=== PATIENT | male | born 1960 | race Caucasian/White ===

== ENCOUNTER → 2016-12-17 | Outpatient (CLI) | payer BC ==
[~2016-12-17] MED LIST: ASP81CT; CATHETER FLUSH 10 ML SYR IV PRN; CTRZ10T; IOHEXOL 350 MG/ML 100 ML (OMNIPAQUE 350) VIAL IV ONE; MONT10TA21 PO; NS 100 ML (IVPB) BAG IV ONE; diphenhydrAMINE 50 MG/ML INJ (BENADRYL) IV ONE; diphenhydrAMINE 50 MG/ML INJ (BENADRYL) ONE; methylPREDNISolone 125 MG (Solu-MEDROL) VIAL IV ONE; methylPREDNISolone 125 MG (Solu-MEDROL) VIAL ONE
[2016-12-17 09:43] LABS: BLOOD UREA NITROGEN 16 MG/DL (7-18); BUN/CREATININE RATIO 16; CREATININE SERUM 0.98 MG/DL (0.60-1.30); GFR ESTIMATED > 60
--- NOTE | 2016-12-17 12:05 | Diagnostic Imaging Report ---
EXAMINATION: CT scan of the head and neck performed without and with intravenous contrast. INDICATION: Visual problems. FINDINGS: CT HEAD: There is no intracranial hemorrhage, edema, or mass effect. The brain parenchyma appears unremarkable. No hydrocephalus. No extra-axial fluid collection is seen. Post contrast images demonstrate no enhancing mass. The calvarium, orbits, and paranasal sinuses appear unremarkable. CT NECK: There is mild hypertrophy of the oropharyngeal tonsils with calcifications seen in the peritonsillar region on both sides but more on the left, presumably related to prior infections. There is a symmetric appearance of the vocal cords. The thyroid gland, submandibular glands, and parotid glands appear symmetric. There is vascular enhancement in the carotid arteries and internal jugular veins with no gross abnormality. No soft tissue mass or significantly enlarged lymph node in the neck is seen. The osseous structures appear grossly unremarkable. IMPRESSION: CT HEAD: Unremarkable exam. CT NECK: Hypertrophy of the oropharyngeal tonsillar tissue and punctate calcifications seen, probably related to prior infections. Correlate clinically. Dictated by: Dictated on workstation # [id number]
== END ==
LOC: RAD 09:06
PROVIDERS: ATTEND Family Medicine
DX: H49.01 Third [oculomotor] nerve palsy, right eye (principal)
CPT/HCPCS: 36415; 70470; 70492; 82565; 84520

== ENCOUNTER → 2017-01-01 | Outpatient (CLI) | payer BC ==
[~2017-01-01] MED LIST changes: -CATHETER FLUSH 10 ML SYR IV PRN; +GADOBUTROL 10 MMOL/10 ML (GADAVIST) VIAL IV ONE; -IOHEXOL 350 MG/ML 100 ML (OMNIPAQUE 350) VIAL IV ONE; -NS 100 ML (IVPB) BAG IV ONE; -diphenhydrAMINE 50 MG/ML INJ (BENADRYL) IV ONE; -diphenhydrAMINE 50 MG/ML INJ (BENADRYL) ONE; -methylPREDNISolone 125 MG (Solu-MEDROL) VIAL IV ONE; -methylPREDNISolone 125 MG (Solu-MEDROL) VIAL ONE
--- NOTE | 2017-01-01 10:56 | Diagnostic Imaging Report ---
MRI of the brain and sella performed without and with intravenous contrast. INDICATION: Abnormal eye exam. Rule out tumor of the pituitary gland. 9 mL of Gadovist is administered intravenously. FINDINGS: There is no diffusion restriction to suggest an acute infarct or other diffusion abnormality. The brain parenchyma demonstrates normal barnett and white matter signal. There is no hydrocephalus. No extra-axial fluid collection is seen. No demyelinating lesions, brain edema, or enhancing mass. The brainstem and cerebellum appear unremarkable. Thin section dedicated images through the sella demonstrate asymmetry in the pituitary gland with convexity of the roof of the pituitary gland on the right side with suggestion of an underlying nodule measuring 7 x 7 x 8 mm. This is abutting the right cavernous sinus with no definite invasion or encasement of the cavernous sinus. It has a T1 hyperintense intrinsic signal as seen on coronal image 8, series 9 which may indicate small focal hemorrhage. This corresponds to a dark signal on T2 as on coronal image 8, series 10. The lesion is inseparable from the rest of the pituitary gland and is probably arising from it suggestive of a microadenoma. The flow-void signal in the adjacent right internal carotid artery within the cavernous sinus appears normal. The internal auditory canals and inner ear structures appear symmetric. IMPRESSION: There is a 7-mm nodule seen in the right side of the sella which appears to be arising from the pituitary gland suggestive of a microadenoma. Intrinsic T1 hyperintensity may relate to tiny internal hemorrhage. The nodule is abutting the right cavernous sinus without definitive invasion or significant encasement of the right internal carotid artery. Followup exam is recommended. Findings were discussed with Dr. Dominguez at time of dictation. Dictated by: Dictated on workstation # [id number]
== END ==
LOC: RAD 07:47
PROVIDERS: ATTEND Family Medicine
DX: H49.01 Third [oculomotor] nerve palsy, right eye (principal); E23.7 Disorder of pituitary gland, unspecified
CPT/HCPCS: 70553

== ENCOUNTER → 2017-03-18 | Outpatient (CLI) | payer BC ==
[~2017-03-18] MED LIST changes: -GADOBUTROL 10 MMOL/10 ML (GADAVIST) VIAL IV ONE
--- NOTE | 2017-03-18 17:33 | Diagnostic Imaging Report ---
INDICATION: Left knee injury two months ago with continued medial pain. EXAMINATION: AP, oblique and lateral views of the left knee were obtained. COMPARISON: Study of 05/30/2012. FINDINGS: There is mild narrowing of the medial compartment of the knee joint with focal lucency along the medial margin of the medial tibial plateau. There may be mild associated fragmentation at this site indicating probable subacute fracture. No significant joint effusion is identified. There is no other evidence of abnormal lytic or sclerotic focus. IMPRESSION: Focal defect involving the medial aspect of the medial tibial plateau which likely represents subacute impaction fracture and clinical correlation is recommended. Dictated by: Dictated on workstation # [id number]
== END ==
LOC: RAD 16:31
PROVIDERS: ATTEND Family Medicine
DX: R93.7 Abnormal findings on diagnostic imaging of other parts of musculoskeletal system (principal)
CPT/HCPCS: 73562

== ENCOUNTER → 2017-04-22 | Outpatient (CLI) | payer BC ==
--- NOTE | 2017-04-22 17:57 | Diagnostic Imaging Report ---
PROCEDURE: MRI left joint lower extremity without contrast. TECHNIQUE: Multiplanar, multisequence non contrast-enhanced MRI of the left lower extremity was accomplished. INDICATION: Left knee pain. FINDINGS: The anterior cruciate and posterior cruciate ligaments are intact. There is some increased signal intensity within the posterior cruciate ligament likely reflecting some myxoid degeneration. The medial collateral ligament is intact. The biceps femoris, fibular collateral, and iliotibial band are intact. There is a tear of the posterior horn of the medial meniscus. The anterior horn of the medial meniscus is intact. There is abnormal signal intensity centrally within both the posterior and anterior horns of the lateral meniscus. Tear extending to the superior articular surface from the anterior horn cannot be excluded. The quadriceps tendon and patellar tendon are intact. There is a small knee joint effusion. There is some mild chondromalacia patellae with some minimal underlying marrow edema in the medial patellar facet. There is some thinning of the articular cartilage in the medial knee joint compartment; however, no full-thickness osteochondral defects. There is no underlying marrow edema. There are no other focal soft tissue abnormalities. IMPRESSION: There is a tear of the posterior horn of the medial meniscus. There are also at least intrasubstance tears of the anterior and posterior horns of the lateral meniscus. A tear extending to the superior articular surface of the anterior horn of the lateral meniscus is suspected. Recommend clinical correlation. Small knee joint effusion. Chondromalacia patellae with some minimal underlying marrow edema in the medial patellar facet. Thinning of the articular cartilage in the medial knee joint compartment without evidence of underlying marrow edema. Dictated by: Dictated on workstation # [id number]
== END ==
LOC: RAD 16:10
PROVIDERS: ATTEND Orthopaedic Surgery
DX: S83.282A Other tear of lateral meniscus, current injury, left knee, initial encounter (principal); S83.242A Other tear of medial meniscus, current injury, left knee, initial encounter; M25.462 Effusion, left knee; M22.42 Chondromalacia patellae, left knee; X58.XXXA Exposure to other specified factors, initial encounter; Y99.8 Other external cause status
CPT/HCPCS: 73721

== ENCOUNTER → 2018-07-01 | Outpatient (CLI) | payer BC ==
[~2018-07-01] MED LIST changes: +GADOBUTROL 10 MMOL/10 ML (GADAVIST) VIAL IV ONE
[2018-07-01 12:52] LABS: BUN/CREATININE RATIO 14; CREATININE SERUM 0.98 MG/DL (0.60-1.30); GFR ESTIMATED > 60
--- NOTE | 2018-07-01 14:23 | Diagnostic Imaging Report ---
PROCEDURE: MR brain and sella with and without contrast. TECHNIQUE: Multiplanar, multisequence MR imaging of the brain was performed with and without contrast. Dedicated dynamic imaging of the sella was performed. INDICATION: Pituitary tumor, recheck. COMPARISON: 01/01/2017. FINDINGS: No diffusion restriction is identified. The normal expected flow-voids within the carotid siphons are seen. Ventricular size is normal. No hydrocephalus is identified. Occasional periventricular and subcortical white matter signal foci are present consistent with chronic microvascular ischemia. No acute intra-axial or extra-axial hemorrhage is detected. The overall configuration of the sella is very similar to prior examination from December 2016. The right aspect of the pituitary gland again demonstrates some mild convex upward borders. Overall signal appears to be very similar to the adjacent pituitary gland, however. No significant hypointensity on delayed imaging within the pituitary gland is seen, which is typical for microadenomas. The infundibulum remains midline. Optic chiasm is unremarkable. Corpus callosum is unremarkable. IMPRESSION: Overall stable MRI of the brain with and without contrast when compared with study dating back to 01/01/2017. The configuration of the pituitary gland and sella is unchanged from prior study. No new abnormality is detected. Dictated by: Dictated on workstation # [id number]
== END ==
LOC: RAD 12:11
PROVIDERS: ATTEND Nurse Practitioner Family
DX: D35.2 Benign neoplasm of pituitary gland (principal)
CPT/HCPCS: 36415; 70553; 82565; 84520

== ENCOUNTER 2019-05-30 10:15 | Outpatient (CLI) | payer BC ==
[~2019-05-30] VITALS: Ht 177 cm; Wt 97.7 kg
[~2019-05-30 10:15] MED LIST changes: -GADOBUTROL 10 MMOL/10 ML (GADAVIST) VIAL IV ONE
[2019-05-30] MEDS ORDERED: ALFU10TA PO (12:30)
[2019-05-30] MEDS ORDERED: CETI10TA20 PO (12:30)
[2019-05-30] MEDS ORDERED: MULT1CAP27 PO (12:30)
[2019-05-30] MEDS ORDERED: ASPI-586 PO (12:30)
[2019-05-30] MEDS ORDERED: FAMO-119 PO (12:30)
[2019-05-30] MEDS ORDERED: ACYC400T PO (12:30)
[2019-05-30] MEDS ORDERED: OLME40TA18 PO (12:31)
[2019-05-30] MEDS ORDERED: AMLO2.5T4 PO (12:31)
== END 2019-05-30 12:33 | disposition home or self-care (01) ==
LOC: PREOP 10:15
PROVIDERS: ATTEND Surgery
DX: Z01.818 Encounter for other preprocedural examination (principal)

== ENCOUNTER → 2019-06-02 | Outpatient (CLI) | payer BC ==
--- NOTE | 2019-05-29 16:46 | HISTORY AND PHYSICAL ---
DATE OF SERVICE: PROCEDURE DATE: 05/31/2019. ATTENDING PHYSICIAN: Tierra Dominguez DO HISTORY OF PRESENT ILLNESS: The patient is a 58-year-old male who is known to us. He who is seen back in 2009 for a change in bowel habits as well as diarrhea and underwent a colonoscopy at that time. He was found to have mild external and internal hemorrhoids with the remainder of the colon and rectum normal. On today's visit, the patient reports that he is in need of a screening colonoscopy. Again, his last one was 10 years ago. He denies any family history of colon cancer as well as no diarrhea, constipation or any abdominal pain. He does report that he does occasionally get some episodes of bright red blood in the stool, but reports that this is usually a hemorrhoid related. PAST MEDICAL HISTORY: Hypertension, hypercholesterolemia, hypogonadism. PAST SURGICAL HISTORY: Left arm biceps tendon repair 05/2017. ALLERGIES: IV CONTRAST DYE. CURRENT MEDICATIONS: Multivitamin, Zyrtec, aspirin 81 mg, Pepcid 20 mg, Uroxatral 10 mg, acyclovir 400 mg, amlodipine 2.5 mg, alfuzosin 10 mg, atorvastatin 10 mg, olmesartan 40 mg. SOCIAL HISTORY: Negative for smoke or alcohol. FAMILY HISTORY: Father leukemia, hypertension. Mother, hypertension. PHYSICAL EXAMINATION: VITAL SIGNS: Blood pressure is 112/60. Current weight is 227.2, height 5 feet 10 inches. REVIEW OF SYSTEMS: Well-nourished male in no acute distress. He is not experiencing any shortness of breath or difficulty breathing. No chest pain, palpitations or diaphoresis. No nausea, vomiting or abdominal pain. No diarrhea or constipation. He does report occasional episodes of bright red blood in his stool, but is most likely a hemorrhoid related. No dark tarry stools. No fever or chills. No recent inadvertent weight loss. All other review of systems negative. PHYSICAL EXAMINATION: CHEST: Clear. LUNGS: Good breath sounds bilaterally. HEART: Regular, no murmurs. EXTREMITIES: No lower extremity edema. Negative Homans sign. HEENT: No scleral icterus. No cervical adenopathy. ABDOMEN: Soft, nontender, nondistended. No palpable masses. No organomegaly. SKIN: Warm, dry and pink. NEUROLOGIC: Awake, alert, oriented x3. ASSESSMENT AND PLAN: This is a 58-year-old male who is in need of a screening colonoscopy. The risks and benefits of the procedure as well as the procedure with instructions were explained to the patient. The patient verbalized understanding of instructions and agrees to this plan. At this time, we will proceed with scheduling the patient for a screening colonoscopy. Job ID: [id number] DocumentID: [id number] Dictated Date: 05/29/2019 16:29:10 Corrosion Prevention Metal Sprayer Date: 05/29/2019 16:45:36 Dictated By: JESSICA LOUIS APRN
[~2019-06-02] MED LIST changes: +ACYC400T PO; +ALFU10TA PO; +AMLO2.5T4 PO; +ASPI-586 PO; +CETI10TA20 PO; +FAMO-119 PO; +GADOBUTROL 10 MMOL/10 ML (GADAVIST) VIAL IV ONE; +MULT1CAP27 PO; +OLME40TA18 PO
--- NOTE | 2019-06-02 12:51 | Diagnostic Imaging Report ---
PROCEDURE: MR brain and sella with and without contrast. TECHNIQUE: Multiplanar, multisequence MR imaging of the brain was performed with and without contrast. Dedicated dynamic imaging of the sella was performed. INDICATION: Benign pituitary tumor, recheck. COMPARISON: 07/01/2018. FINDINGS: The diffusion-weighted images remain unremarkable and without abnormal restriction. Ventricular size and sulcal pattern are normal. The normal expected flow-voids within the carotid siphons are seen. Previously noted periventricular and subcortical white matter signal abnormalities are similar to prior exam and again likely on the basis of chronic microvascular ischemia. No acute intra-axial or extra-axial hemorrhage is detected. Imaging through the sella turcica again demonstrates the infundibulum to be midline. The configuration of the pituitary gland and sella is stable when compared with prior exam. The right aspect of the sella with convex upper borders of the pituitary gland are similar. No hypointense pituitary lesions are seen. The optic chiasm is unremarkable. The remainder of the brain parenchyma is unremarkable. No enhancing lesions are detected. Corpus callosum is unremarkable. IMPRESSION: Stable MRI of the brain and pituitary gland when compared with exam from 07/01/2018. Dictated by: Dictated on workstation # [id number]
== END ==
LOC: RAD 09:08
PROVIDERS: ATTEND Family Medicine
DX: D49.7 Neoplasm of unspecified behavior of endocrine glands and other parts of nervous system (principal)
CPT/HCPCS: 70553

== ENCOUNTER → 2020-01-22 | Outpatient (CLI) | payer BC ==
[~2020-01-22] MED LIST changes: -CETI10TA20 PO; +CETI10TA21 PO; -GADOBUTROL 10 MMOL/10 ML (GADAVIST) VIAL IV ONE
== END ==
LOC: LABNPT 07:20
PROVIDERS: ATTEND Surgery
DX: Z11.59 Encounter for screening for other viral diseases (principal)
CPT/HCPCS: 87635

== ENCOUNTER 2020-02-01 10:14 | Outpatient (CLI) | payer BC ==
[~2020-02-01] VITALS: Ht 180.3 cm; Wt 97.7 kg
[2020-02-01] MEDS ORDERED: NS IV 1000 ML 1,000 ML ONE (10:41)
[2020-02-01 10:45] VITALS: BP 102/48
[2020-02-01] MEDS ORDERED: NS IV 1000 ML 1,000 ML IV ONE (11:00)
[2020-02-01 11:52] VITALS: BP 102/48
== END 2020-02-01 11:52 | disposition home or self-care (01) ==
LOC: SDC 10:14
PROVIDERS: ATTEND Family Medicine
DX: E86.0 Dehydration (principal); C19 Malignant neoplasm of rectosigmoid junction
CPT/HCPCS: 96360

== ENCOUNTER → 2020-02-20 | Outpatient (CLI) | payer BC ==
[~2020-02-20] MED LIST changes: +HYDR-83 PO
== END ==
LOC: LABNPT 08:34
PROVIDERS: ATTEND Surgery
DX: C20 Malignant neoplasm of rectum (principal); Z20.828 Contact with and (suspected) exposure to other viral communicable diseases
CPT/HCPCS: 87635

== ENCOUNTER 2020-02-21 05:40 | Outpatient (RCR) | payer BC ==
[~2020-02-21] VITALS: Ht 180.3 cm; Wt 100.5 kg
[~2020-02-21 05:40] MED LIST changes: -HYDR-83 PO
[2020-02-22] MEDS ORDERED: HYDR-83 PO (08:17)
== END 2020-02-21 10:03 | disposition home or self-care (01) ==
LOC: PREOP 05:40
PROVIDERS: ATTEND Surgery
DX: Z01.818 Encounter for other preprocedural examination (principal); C19 Malignant neoplasm of rectosigmoid junction

== ENCOUNTER 2020-02-22 07:22 | Day surgery (SDC) | payer BC ==
--- NOTE | 2020-02-20 15:28 | HISTORY AND PHYSICAL ---
DATE OF SERVICE: ATTENDING PRIMARY CARE PHYSICIAN: Dr. Dominguez. HISTORY OF PRESENT ILLNESS: The patient is a 58-year-old male known to us. He states he was doing well; however, did notice rectal bleeding in 12/2019. He was eventually seen at [facility] and was found to have a lesion at the rectosigmoid junction, which was biopsied and found to be an adenocarcinoma. He was seen by Colorectal Surgery at [facility] and underwent a low anterior resection as well as a loop ileostomy on 01/25/2020. The final pathology came back as a T3 tumor. However, there were some cells identified in the vasculature making this a T3b tumor. Nineteen lymph nodes were resected, which were all negative. 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 The recommendation was to proceed with the immediate short course of chemotherapy with leucovorin, 5-fluorouracil as well as oxaliplatin. He also underwent a Cece blood test to see if there are any cancer cells detected in the blood stream, which if positive does show a 75% risk of developing recurrence within 5 years. PAST MEDICAL HISTORY: Hypertension, hypercholesterolemia, idiopathic anaphylaxis with unknown inciting event, gastroesophageal reflux disease. PAST SURGICAL HISTORY: Low anterior colorectal resection and loop ileostomy 01/25/2020. ALLERGIES: UNSPECIFIED FOOD ALLERGIES, IODINE, IV CONTRAST DYE. MEDICATIONS: Pepcid 20 mg daily, aspirin 81 mg daily, atorvastatin 10 mg daily, Benicar 40 mg daily, Zorvolex 35 mg p.r.n. SOCIAL HISTORY: Negative smoke, negative alcohol. FAMILY HISTORY: Paternal grandfather, colon cancer. Paternal grandmother, some form of bone cancer. VITAL SIGNS: Blood pressure 112/60, current weight 221.5 pounds at 5 feet 11 inches. REVIEW OF SYSTEMS: Well-nourished male in no acute distress. He is not experiencing any shortness of breath or difficulty breathing. No chest pain, palpitations, diaphoresis. No nausea, vomiting with a functional ileostomy. No fever, chills, no recent inadvertent weight loss. All other review of systems negative. PHYSICAL EXAMINATION: CHEST: Clear. Good breath sounds bilaterally. HEART: Regular, no murmurs. EXTREMITIES: No lower extremity edema, negative Homans sign. HEENT: No scleral icterus. NECK: No cervical lymphadenopathy. ABDOMEN: Soft with a functional loop ileostomy. Previous incisions healed well. No abdominal pain. SKIN: Warm, dry. ASSESSMENT AND PLAN: A 58-year-old male with distal sigmoid colon cancer, status post low anterior colorectal resection and loop ileostomy placement. He has got a T3b tumor and stage II overall colon cancer and the recommendation was to proceed with immediate short course of leucovorin, 5-fluorouracil and oxaliplatin and we will proceed with placement of a Groshong implantable catheter under fluoroscopy. Job ID: [id number] DocumentID: [id number] Dictated Date: 02/19/2020 16:30:36 Manager Photo Date: 02/19/2020 16:47:56 Dictated By: ALYSE CROCKER MD
[2020-02-22] VITALS (9 sets, daily range): BP systolic 110–128; BP diastolic 59–93
[~2020-02-22] VITALS: Ht 180.3 cm; Wt 100.5 kg
[2020-02-22] MEDS ORDERED: LACTATED RINGERS 1,000 ML IV PRN (07:31)
[2020-02-22] MEDS ORDERED: ceFAZolin 2 GM IV Premixed 50 ML IV ONE (07:45)
[2020-02-22] MEDS ORDERED: HEParin (CENTRAL IV FLUSH) 500 UNIT/5 ML SYR ONE (08:00)
[2020-02-22] MEDS ORDERED: 0.9% SODIUM CHLORIDE PF INJ 20 ML VIAL ONE (08:00)
[2020-02-22] MEDS ORDERED: BUP/EPI 0.5% 1:200,000 (SENSORCAINE) 30 ML VIAL ONE (08:00)
[2020-02-22] MEDS ORDERED: ACETAMINOPHEN 325 MG TABLET PO PRN (08:15)
[2020-02-22] MEDS ORDERED: morphine INJ 10 MG/ML 1ML (SYR OR VIAL) IVP PRN (08:15)
[2020-02-22] MEDS ORDERED: ONDANSETRON 4 MG/2 ML (SDV) Z0FRAN IVP PRN (08:15)
[2020-02-22] MEDS ORDERED: HYDROcodone/APAP 5 MG/325 MG (LORTAB) TAB PO ONE (08:15)
--- NOTE | 2020-02-22 08:15 | Progress Note-Pre Operative ---
Pre-Operative Progress Note H&P Reviewed The H&P was reviewed, patient examined and no changes noted. Date Seen by Provider: Feb 22, 2020 Time Seen by Provider: 08:10 Date H&P Reviewed: Feb 22, 2020 Time H&P Reviewed: 08:05 Pre-Operative Diagnosis: Rectal Cancer JESSICA LOUIS APRN Feb 22, 2020 08:15
[2020-02-22] MEDS ORDERED: HYDR-83 PO ×2 (08:17)
--- NOTE | 2020-02-22 08:18 | Discharge Inst-Surgical ---
D/C Lap Instructions-KIDO Reconcile Patient Problems Problems Reviewed?: Yes New, Converted, or Re-Newed RX: RX on Chart Follow Up Appt as needed Activity as tolerated No driving for 24 hours No driving while on pain medications Regular Diet Symptoms to Report: Fever over 101 degree F, Nausea/Vomiting Infection Signs and Symptoms to report: Increased redness, Foul odor of wound, Increased drainage Bathing instructions: May shower Operative Area Clean/Dry; Keep incision clean/dry If any problems/questions: Contact your physician or go to Emergency Room JESSICA LOUIS APRN Feb 22, 2020 08:18
[2020-02-22] MEDS ORDERED: MIDAZOLAM 2 MG/2 ML (VERSED) VIAL ONE (08:28)
--- NOTE | 2020-02-22 08:55 | Progress Note-Post Operative ---
Post-Operative Progess Note Surgeon (s)/Sr. Media Manager (s) Surgeon Dr. Akin Ramos M.D. Sr. Media Manager: None Pre-Operative Diagnosis Rectal Cancer Post-Operative Diagnosis Rectal Cancer Procedure & Operative Findings Date of Procedure 02/22/20 Procedure Performed/Findings Placement of left subclavian groshong implantable catheter and port Anesthesia Type MAC with local Estimated Blood Loss Estimated blood loss (mL): Minimal Specimens/Packing Specimens Removed None JESSICA LOUIS WINDSHIELD WIPER REPAIRER Feb 22, 2020 08:55
[2020-02-22] MEDS ORDERED: PROPOFOL INJECTION 50 ML IV ONE (09:09)
--- NOTE | 2020-02-22 09:29 | OPERATIVE REPORT ---
DATE OF SERVICE: 02/22/2020 ATTENDING PRIMARY CARE PHYSICIAN: Dr. Dominguez. PREOPERATIVE DIAGNOSIS: Colon cancer. POSTOPERATIVE DIAGNOSIS: Colon cancer. PROCEDURE: Placement of left subclavian Groshong implantable catheter with the PowerPort under fluoroscopy. SURGEON: Alyse Crocker MD. ANESTHESIA: Monitored anesthesia care with local. ESTIMATED BLOOD LOSS: Minimal. FINDINGS: Catheter tip at superior vena caval -- right atrial junction. DISPOSITION: The patient tolerated the procedure well. INDICATIONS: The patient is a 58-year-old male known to us. He noticed rectal bleeding in 12/2019 and was seen at [facility] and was found to have a lesion at the rectosigmoid junction, which was biopsied and found to be an adenocarcinoma. He was seen by colorectal surgery at [facility], underwent a low anterior colorectal resection as well as a loop ileostomy on 01/25/2020. The final pathology came back as a T3 tumor. However, there were some still identified surrounding the neurovascular bundle, making this a T3b tumor. Nineteen lymph nodes were resected, all of which were negative. 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 The recommendation was to proceed with an immediate short course of chemotherapy with leucovorin 5-fluorouracil as well as oxaliplatin. He also underwent Cece blood test to see if there are any cancer cells detected within his blood and if positive does show a 75% risk of developing recurrence within 5 years and if this is positive, he will discuss with oncology for possibly proceeding with a full course of chemotherapy. DESCRIPTION OF PROCEDURE: The patient was brought to the operating room, laid supine on the table. After adequate IV pain and sedative medications and conscious and monitored anesthesia care, the chest and neck were prepped and draped in standard surgical fashion. A 1% lidocaine with epinephrine was then used to anesthetize the subclavian region. Left subclavian vein was then cannulated withdrawing the venous blood. The guidewire was then inserted under fluoroscopy. Cannulating needle removed and a skin incision made using 15 blade. The dilator and sheath were then introduced over the guidewire. The guidewire and the dilator were then removed and the Groshong catheter was placed until the catheter tip was at the superior vena caval -- right atrial junction and the sheath removed. The inner wire within the catheter was then removed. The catheter cut down to size and the port placed onto the catheter. This was done under fluoroscopy. We then proceeded with creation of the chest reservoir by extending the incision laterally with a 15 blade. A plane was then created between the subcutaneous fat and the anterior pectoralis fascia. Using blunt dissection as well as electrocautery with visualization of good hemostasis. The port was then placed in the reservoir and sutured to the fascia using interrupted 3-0 Vicryl sutures. Subcutaneous tissue was then reapproximated using 3-0 Vicryl interrupted sutures. Skin was closed using 4-0 Monocryl running subcuticular suture. Wound was then cleaned and covered with Dermabond. The patient tolerated the procedure well. We will get a post-procedure chest x-ray and once confirmation of placement of the port may be accessed and used at any time. Job ID: [id number] DocumentID: [id number] Dictated Date: 02/22/2020 09:13:53 Career Services Officer Date: 02/22/2020 09:29:11 Dictated By: ALYSE CROCKER MD
[2020-02-22] MEDS ORDERED: fentaNYL INJECTION 100 MCG/2 ML AMP IVP ONE (09:30)
--- NOTE | 2020-02-22 09:40 | Diagnostic Imaging Report ---
INDICATION: Central line placement IMPRESSION: 14.7 seconds of fluoroscopy and single digital image used by Dr. Ramos during Groshong catheter placement. Image shows catheter tip projecting over the SVC. Dictated by: Dictated on workstation # [id number]
--- NOTE | 2020-02-22 10:14 | Diagnostic Imaging Report ---
INDICATION: Port placement. Time of exam: 9:56 AM Left-sided port has tip overlying the SVC right atrial junction. No pneumothorax is seen. Lungs are clear. There is no effusion. IMPRESSION: Port placement. No complicating features are detected. Dictated by: Dictated on workstation # [id number]
--- NOTE | 2020-02-22 10:48 | Anesthesia-General Post-Op ---
MAC Patient Condition Mental Status/LOC: Same as Preop Cardiovascular: Satisfactory Nausea/Vomiting: Absent Respiratory: Satisfactory Pain: Controlled Complications: Absent Post Op Complications Complications None Follow Up Care/Instructions Patient Instructions None needed. Anesthesiology Discharge Order Discharge Order Patient is doing well, no complaints, stable vital signs, no apparent adverse anesthesia problems. No complications reported per nursing. RUPAL MENA CRNA Feb 22, 2020 10:48
--- NOTE | 2020-02-26 08:10 | Progress Note ---
Standard Progress Note Progress Notes/Assess & Plan Date Seen by a Provider: Feb 22, 2020 Time Seen by a Provider: 07:44 Progress/Assessment & Plan Addendum to anesthesia record. I spoke with patient preop about the anesthetic and discussed a MAC anesthetic with the remote possibility of a general anesthetic should the local anesthetic and sedation not be sufficient for his comfort. He understood the risks and benefits and wished to proceed with a MAC. I failed to have the patient sign our anesthesia consent, however he voiced and understanding and agreement with the plan. ELIJAH NUÑEZ DO Feb 26, 2020 08:10
== END 2020-02-22 10:40 | disposition home or self-care (01) ==
LOC: SDC 07:22
PROVIDERS: ATTEND Surgery
DX: C18.7 Malignant neoplasm of sigmoid colon (principal); I10 Essential (primary) hypertension; E78.00 Pure hypercholesterolemia, unspecified; K21.9 Gastro-esophageal reflux disease without esophagitis; Z79.82 Long term (current) use of aspirin; Z79.899 Other long term (current) drug therapy; Z91.041 Radiographic dye allergy status; Z91.013 Allergy to seafood; Z91.018 Allergy to other foods; Z87.892 Personal history of anaphylaxis; Z80.0 Family history of malignant neoplasm of digestive organs; Z80.8 Family history of malignant neoplasm of other organs or systems
CPT/HCPCS: 36561; 71045; 76000; 87081; C1788

== ENCOUNTER 2020-05-09 09:14 | Outpatient (RCR) | payer BC ==
[2020-02-29 13:29] LABS: BASOPHILS # (AUTO) 0.1 10^3/uL (0.0-0.1); BASOPHILS % (AUTO) 1 % (0-10); EOSINOPHILS # (AUTO) 0.5 10^3/uL (0.0-0.3); EOSINOPHILS % (AUTO) 10 % (0-10); HEMATOCRIT 39 % (40-54); HEMOGLOBIN 12.8 G/DL (13.3-17.7); LYMPHOCYTES # (AUTO) 1.3 X 10^3 (1.0-4.0); LYMPHOCYTES % (AUTO) 27 % (12-44); MEAN CORPUSCULAR HEMOGLOBIN 28 PG (25-34); MEAN CORPUSCULAR HGB CONC 33 G/DL (32-36); MEAN CORPUSCULAR VOLUME 86 FL (80-99); MEAN PLATELET VOLUME 9.8 FL (7.4-10.4); MONOCYTES # (AUTO) 0.4 X 10^3 (0.0-1.0); MONOCYTES % (AUTO) 7 % (0-12); NEUTROPHILS # (AUTO) 2.6 X 10^3 (1.8-7.8); NEUTROPHILS % (AUTO) 55 % (42-75); PLATELET COUNT 297 10^3/uL (130-400); WHITE BLOOD COUNT 4.7 10^3/uL (4.3-11.0)
[2020-02-29 13:49] LABS: ALANINE AMINOTRANSFERASE 102 U/L (0-55); ALKALINE PHOSPHATASE 96 U/L (40-136); BILIRUBIN,TOTAL 0.5 MG/DL (0.1-1.0); BUN/CREATININE RATIO 20; CALCIUM 9.3 MG/DL (8.5-10.1); CARBON DIOXIDE 23 MMOL/L (21-32); CHLORIDE 107 MMOL/L (98-107); GFR ESTIMATED > 60; GLUCOSE 131 MG/DL (70-105); MAGNESIUM 1.9 MG/DL (1.6-2.4); POTASSIUM 3.9 MMOL/L (3.6-5.0); SODIUM 140 MMOL/L (135-145); TOTAL PROTEIN 6.8 GM/DL (6.4-8.2)
[2020-03-07 09:01] LABS: BASOPHILS % (AUTO) 1 % (0-10); EOSINOPHILS # (AUTO) 0.3 10^3/uL (0.0-0.3); EOSINOPHILS % (AUTO) 4 % (0-10); HEMATOCRIT 42 % (40-54); HEMOGLOBIN 14.2 G/DL (13.3-17.7); LYMPHOCYTES # (AUTO) 2.1 X 10^3 (1.0-4.0); LYMPHOCYTES % (AUTO) 31 % (12-44); MEAN CORPUSCULAR HEMOGLOBIN 28 PG (25-34); MEAN CORPUSCULAR HGB CONC 34 G/DL (32-36); MEAN CORPUSCULAR VOLUME 84 FL (80-99); MEAN PLATELET VOLUME 9.6 FL (7.4-10.4); MONOCYTES # (AUTO) 0.8 X 10^3 (0.0-1.0); MONOCYTES % (AUTO) 13 % (0-12); NEUTROPHILS # (AUTO) 3.4 X 10^3 (1.8-7.8); NEUTROPHILS % (AUTO) 51 % (42-75); PLATELET COUNT 428 10^3/uL (130-400); WHITE BLOOD COUNT 6.7 10^3/uL (4.3-11.0)
[2020-03-07 09:14] LABS: BUN/CREATININE RATIO 13; CALCIUM 9.7 MG/DL (8.5-10.1); CARBON DIOXIDE 24 MMOL/L (21-32); CHLORIDE 106 MMOL/L (98-107); CREATININE SERUM 0.97 MG/DL (0.60-1.30); GFR ESTIMATED > 60; GLUCOSE 79 MG/DL (70-105); POTASSIUM 4.2 MMOL/L (3.6-5.0); SODIUM 141 MMOL/L (135-145)
[2020-03-14 10:16] LABS: BASOPHILS % (AUTO) 1 % (0-10); EOSINOPHILS # (AUTO) 0.2 10^3/uL (0.0-0.3); EOSINOPHILS % (AUTO) 3 % (0-10); HEMATOCRIT 42 % (40-54); HEMOGLOBIN 14.3 G/DL (13.3-17.7); LYMPHOCYTES # (AUTO) 1.3 X 10^3 (1.0-4.0); LYMPHOCYTES % (AUTO) 22 % (12-44); MEAN CORPUSCULAR HEMOGLOBIN 28 PG (25-34); MEAN CORPUSCULAR HGB CONC 34 G/DL (32-36); MEAN CORPUSCULAR VOLUME 84 FL (80-99); MEAN PLATELET VOLUME 9.7 FL (7.4-10.4); MONOCYTES # (AUTO) 0.5 X 10^3 (0.0-1.0); MONOCYTES % (AUTO) 9 % (0-12); NEUTROPHILS # (AUTO) 3.8 X 10^3 (1.8-7.8); NEUTROPHILS % (AUTO) 66 % (42-75); PLATELET COUNT 418 10^3/uL (130-400); WHITE BLOOD COUNT 5.8 10^3/uL (4.3-11.0)
[2020-03-14 10:33] LABS: BUN/CREATININE RATIO 15; CALCIUM 9.9 MG/DL (8.5-10.1); CARBON DIOXIDE 20 MMOL/L (21-32); CHLORIDE 107 MMOL/L (98-107); CREATININE SERUM 1.08 MG/DL (0.60-1.30); GFR ESTIMATED > 60; GLUCOSE 96 MG/DL (70-105); POTASSIUM 4.6 MMOL/L (3.6-5.0); SODIUM 139 MMOL/L (135-145)
[2020-03-21 12:59] LABS: BASOPHILS % (AUTO) 1 % (0-10); EOSINOPHILS # (AUTO) 0.2 10^3/uL (0.0-0.3); EOSINOPHILS % (AUTO) 4 % (0-10); HEMATOCRIT 40 % (40-54); HEMOGLOBIN 13.4 G/DL (13.3-17.7); LYMPHOCYTES # (AUTO) 1.3 X 10^3 (1.0-4.0); LYMPHOCYTES % (AUTO) 32 % (12-44); MEAN CORPUSCULAR HEMOGLOBIN 28 PG (25-34); MEAN CORPUSCULAR HGB CONC 34 G/DL (32-36); MEAN CORPUSCULAR VOLUME 84 FL (80-99); MEAN PLATELET VOLUME 10.1 FL (7.4-10.4); MONOCYTES # (AUTO) 0.4 X 10^3 (0.0-1.0); MONOCYTES % (AUTO) 10 % (0-12); NEUTROPHILS # (AUTO) 2.1 X 10^3 (1.8-7.8); NEUTROPHILS % (AUTO) 53 % (42-75); PLATELET COUNT 329 10^3/uL (130-400); WHITE BLOOD COUNT 4.1 10^3/uL (4.3-11.0)
[2020-03-21 13:19] LABS: ALANINE AMINOTRANSFERASE 105 U/L (0-55); ALBUMIN 4.2 GM/DL (3.2-4.5); ALKALINE PHOSPHATASE 87 U/L (40-136); BILIRUBIN,TOTAL 0.7 MG/DL (0.1-1.0); BUN/CREATININE RATIO 18; CALCIUM 9.3 MG/DL (8.5-10.1); CARBON DIOXIDE 17 MMOL/L (21-32); CHLORIDE 105 MMOL/L (98-107); CREATININE SERUM 1.17 MG/DL (0.60-1.30); GFR ESTIMATED > 60; GLUCOSE 120 MG/DL (70-105); MAGNESIUM 2.1 MG/DL (1.6-2.4); POTASSIUM 4.3 MMOL/L (3.6-5.0); SODIUM 136 MMOL/L (135-145); TOTAL PROTEIN 7.3 GM/DL (6.4-8.2)
[2020-03-28 10:54] LABS: BASOPHILS % (AUTO) 1 % (0-10); EOSINOPHILS # (AUTO) 0.2 10^3/uL (0.0-0.3); EOSINOPHILS % (AUTO) 4 % (0-10); HEMATOCRIT 39 % (40-54); HEMOGLOBIN 13.3 G/DL (13.3-17.7); LYMPHOCYTES # (AUTO) 1.5 X 10^3 (1.0-4.0); LYMPHOCYTES % (AUTO) 28 % (12-44); MEAN CORPUSCULAR HEMOGLOBIN 29 PG (25-34); MEAN CORPUSCULAR HGB CONC 35 G/DL (32-36); MEAN CORPUSCULAR VOLUME 83 FL (80-99); MEAN PLATELET VOLUME 9.8 FL (7.4-10.4); MONOCYTES # (AUTO) 0.7 X 10^3 (0.0-1.0); MONOCYTES % (AUTO) 13 % (0-12); NEUTROPHILS % (AUTO) 55 % (42-75); PLATELET COUNT 288 10^3/uL (130-400); WHITE BLOOD COUNT 5.5 10^3/uL (4.3-11.0)
[2020-03-28 11:20] LABS: BUN/CREATININE RATIO 13; CALCIUM 9.3 MG/DL (8.5-10.1); CARBON DIOXIDE 23 MMOL/L (21-32); CHLORIDE 105 MMOL/L (98-107); CREATININE SERUM 0.94 MG/DL (0.60-1.30); GFR ESTIMATED > 60; GLUCOSE 89 MG/DL (70-105); MAGNESIUM 2.3 MG/DL (1.6-2.4); POTASSIUM 4.3 MMOL/L (3.6-5.0); SODIUM 137 MMOL/L (135-145)
[2020-04-04 13:41] LABS: BASOPHILS # (AUTO) 0.1 10^3/uL (0.0-0.1); BASOPHILS % (AUTO) 1 % (0-10); EOSINOPHILS # (AUTO) 0.1 10^3/uL (0.0-0.3); EOSINOPHILS % (AUTO) 2 % (0-10); HEMATOCRIT 38 % (40-54); HEMOGLOBIN 12.9 G/DL (13.3-17.7); LYMPHOCYTES # (AUTO) 1.4 X 10^3 (1.0-4.0); LYMPHOCYTES % (AUTO) 24 % (12-44); MEAN CORPUSCULAR HEMOGLOBIN 28 PG (25-34); MEAN CORPUSCULAR HGB CONC 34 G/DL (32-36); MEAN CORPUSCULAR VOLUME 83 FL (80-99); MEAN PLATELET VOLUME 9.4 FL (7.4-10.4); MONOCYTES # (AUTO) 0.5 X 10^3 (0.0-1.0); MONOCYTES % (AUTO) 10 % (0-12); NEUTROPHILS # (AUTO) 3.6 X 10^3 (1.8-7.8); NEUTROPHILS % (AUTO) 64 % (42-75); PLATELET COUNT 288 10^3/uL (130-400); WHITE BLOOD COUNT 5.7 10^3/uL (4.3-11.0)
[2020-04-04 14:01] LABS: CALCIUM 9.2 MG/DL (8.5-10.1); CARBON DIOXIDE 25 MMOL/L (21-32); CHLORIDE 106 MMOL/L (98-107); CREATININE SERUM 1.01 MG/DL (0.60-1.30); GFR ESTIMATED > 60; GLUCOSE 98 MG/DL (70-105); MAGNESIUM 2.1 MG/DL (1.6-2.4); POTASSIUM 4.6 MMOL/L (3.6-5.0); SODIUM 138 MMOL/L (135-145)
[2020-04-04 16:09] LABS: BUN/CREATININE RATIO 14
[2020-04-10 11:05] LABS: BASOPHILS % (AUTO) 1 % (0-10); EOSINOPHILS # (AUTO) 0.1 10^3/uL (0.0-0.3); EOSINOPHILS % (AUTO) 2 % (0-10); HEMATOCRIT 37 % (40-54); HEMOGLOBIN 12.9 G/DL (13.3-17.7); LYMPHOCYTES # (AUTO) 1.2 X 10^3 (1.0-4.0); LYMPHOCYTES % (AUTO) 31 % (12-44); MEAN CORPUSCULAR HEMOGLOBIN 29 PG (25-34); MEAN CORPUSCULAR HGB CONC 35 G/DL (32-36); MEAN CORPUSCULAR VOLUME 83 FL (80-99); MEAN PLATELET VOLUME 9.6 FL (7.4-10.4); MONOCYTES # (AUTO) 0.4 X 10^3 (0.0-1.0); MONOCYTES % (AUTO) 11 % (0-12); NEUTROPHILS # (AUTO) 2.1 X 10^3 (1.8-7.8); NEUTROPHILS % (AUTO) 55 % (42-75); PLATELET COUNT 278 10^3/uL (130-400); WHITE BLOOD COUNT 3.7 10^3/uL (4.3-11.0)
[2020-04-10 11:25] LABS: ALANINE AMINOTRANSFERASE 89 U/L (0-55); ALBUMIN 4.2 GM/DL (3.2-4.5); ALKALINE PHOSPHATASE 81 U/L (40-136); BILIRUBIN,TOTAL 0.6 MG/DL (0.1-1.0); BUN/CREATININE RATIO 16; CALCIUM 9.5 MG/DL (8.5-10.1); CARBON DIOXIDE 26 MMOL/L (21-32); CHLORIDE 105 MMOL/L (98-107); CREATININE SERUM 0.89 MG/DL (0.60-1.30); GFR ESTIMATED > 60; GLUCOSE 88 MG/DL (70-105); MAGNESIUM 2.2 MG/DL (1.6-2.4); POTASSIUM 4.2 MMOL/L (3.6-5.0); SODIUM 137 MMOL/L (135-145); TOTAL PROTEIN 6.8 GM/DL (6.4-8.2)
[2020-04-18 13:42] LABS: BASOPHILS % (AUTO) 1 % (0-10); EOSINOPHILS # (AUTO) 0.2 10^3/uL (0.0-0.3); EOSINOPHILS % (AUTO) 4 % (0-10); HEMATOCRIT 37 % (40-54); HEMOGLOBIN 12.7 G/DL (13.3-17.7); LYMPHOCYTES # (AUTO) 1.4 X 10^3 (1.0-4.0); LYMPHOCYTES % (AUTO) 26 % (12-44); MEAN CORPUSCULAR HEMOGLOBIN 29 PG (25-34); MEAN CORPUSCULAR HGB CONC 34 G/DL (32-36); MEAN CORPUSCULAR VOLUME 85 FL (80-99); MEAN PLATELET VOLUME 9.3 FL (7.4-10.4); MONOCYTES # (AUTO) 0.7 X 10^3 (0.0-1.0); MONOCYTES % (AUTO) 13 % (0-12); NEUTROPHILS % (AUTO) 56 % (42-75); PLATELET COUNT 281 10^3/uL (130-400); WHITE BLOOD COUNT 5.4 10^3/uL (4.3-11.0)
[2020-04-18 13:58] LABS: BUN/CREATININE RATIO 11; CARBON DIOXIDE 26 MMOL/L (21-32); CHLORIDE 104 MMOL/L (98-107); CREATININE SERUM 0.96 MG/DL (0.60-1.30); SODIUM 138 MMOL/L (135-145)
[2020-04-18 13:59] LABS: CALCIUM 9.6 MG/DL (8.5-10.1); GFR ESTIMATED > 60; GLUCOSE 92 MG/DL (70-105); MAGNESIUM 2.2 MG/DL (1.6-2.4)
[2020-04-25 10:17] LABS: BASOPHILS % (AUTO) 1 % (0-10); EOSINOPHILS # (AUTO) 0.2 10^3/uL (0.0-0.3); EOSINOPHILS % (AUTO) 4 % (0-10); HEMATOCRIT 40 % (40-54); HEMOGLOBIN 13.4 G/DL (13.3-17.7); LYMPHOCYTES # (AUTO) 1.2 X 10^3 (1.0-4.0); LYMPHOCYTES % (AUTO) 27 % (12-44); MEAN CORPUSCULAR HEMOGLOBIN 29 PG (25-34); MEAN CORPUSCULAR HGB CONC 34 G/DL (32-36); MEAN CORPUSCULAR VOLUME 86 FL (80-99); MEAN PLATELET VOLUME 9.3 FL (7.4-10.4); MONOCYTES # (AUTO) 0.5 X 10^3 (0.0-1.0); MONOCYTES % (AUTO) 12 % (0-12); NEUTROPHILS # (AUTO) 2.4 X 10^3 (1.8-7.8); NEUTROPHILS % (AUTO) 56 % (42-75); PLATELET COUNT 286 10^3/uL (130-400); WHITE BLOOD COUNT 4.3 10^3/uL (4.3-11.0)
[2020-04-25 10:34] LABS: BUN/CREATININE RATIO 16; CALCIUM 9.2 MG/DL (8.5-10.1); CARBON DIOXIDE 27 MMOL/L (21-32); CHLORIDE 105 MMOL/L (98-107); CREATININE SERUM 0.95 MG/DL (0.60-1.30); GFR ESTIMATED > 60; GLUCOSE 92 MG/DL (70-105); MAGNESIUM 2.3 MG/DL (1.6-2.4); POTASSIUM 4.3 MMOL/L (3.6-5.0); SODIUM 139 MMOL/L (135-145)
[2020-05-01 11:00] LABS: BASOPHILS # (AUTO) 0.1 10^3/uL (0.0-0.1); BASOPHILS % (AUTO) 1 % (0-10); EOSINOPHILS # (AUTO) 0.1 10^3/uL (0.0-0.3); EOSINOPHILS % (AUTO) 3 % (0-10); HEMATOCRIT 39 % (40-54); HEMOGLOBIN 13.2 G/DL (13.3-17.7); LYMPHOCYTES # (AUTO) 1.3 X 10^3 (1.0-4.0); LYMPHOCYTES % (AUTO) 29 % (12-44); MEAN CORPUSCULAR HGB CONC 34 G/DL (32-36); MEAN CORPUSCULAR VOLUME 86 FL (80-99); MEAN PLATELET VOLUME 9.8 FL (7.4-10.4); MONOCYTES # (AUTO) 0.6 X 10^3 (0.0-1.0); MONOCYTES % (AUTO) 14 % (0-12); NEUTROPHILS # (AUTO) 2.4 X 10^3 (1.8-7.8); NEUTROPHILS % (AUTO) 54 % (42-75); PLATELET COUNT 305 10^3/uL (130-400); WHITE BLOOD COUNT 4.6 10^3/uL (4.3-11.0)
[2020-05-01 11:01] LABS: MEAN CORPUSCULAR HEMOGLOBIN 29 PG (25-34)
[2020-05-01 11:19] LABS: ALANINE AMINOTRANSFERASE 121 U/L (0-55); ALBUMIN 4.1 GM/DL (3.2-4.5); ALKALINE PHOSPHATASE 84 U/L (40-136); BILIRUBIN,TOTAL 0.6 MG/DL (0.1-1.0); BUN/CREATININE RATIO 16; CALCIUM 9.1 MG/DL (8.5-10.1); CARBON DIOXIDE 21 MMOL/L (21-32); CHLORIDE 106 MMOL/L (98-107); CREATININE SERUM 0.94 MG/DL (0.60-1.30); GFR ESTIMATED > 60; GLUCOSE 91 MG/DL (70-105); MAGNESIUM 2.1 MG/DL (1.6-2.4); POTASSIUM 4.5 MMOL/L (3.6-5.0); SODIUM 138 MMOL/L (135-145); TOTAL PROTEIN 7.6 GM/DL (6.4-8.2)
[~2020-05-09] VITALS: Ht 180.3 cm; Wt 99.8 kg
[~2020-05-09 09:14] MED LIST changes: +ACHD5005 PO; -CETI10TA21 PO; +CETI10TA49 PO; +D5W 500 ML IV (CANCER CTR) 500 ML IV SCH; +FOSAPREPITANT (CANCER CENTER) 150 MG in NS (IVPB) CANCER CENTER ONLY 150 ML IV SCH; +OXALIPLATIN 180 MG in D5W 250 ML IVPB (CANCER CTR) 250 ML IV SCH
[2020-05-09 09:28] LABS: BASOPHILS # (AUTO) 0.1 10^3/uL (0.0-0.1); BASOPHILS % (AUTO) 1 % (0-10); EOSINOPHILS # (AUTO) 0.2 10^3/uL (0.0-0.3); EOSINOPHILS % (AUTO) 3 % (0-10); HEMATOCRIT 40 % (40-54); HEMOGLOBIN 13.5 g/dL (13.3-17.7); LYMPHOCYTES # (AUTO) 1.5 10^3/uL (1.0-4.0); LYMPHOCYTES % (AUTO) 27 % (12-44); MEAN CORPUSCULAR HEMOGLOBIN 30 pg (25-34); MEAN CORPUSCULAR HGB CONC 34 g/dL (32-36); MEAN CORPUSCULAR VOLUME 87 fL (80-99); MEAN PLATELET VOLUME 9.5 fL (9.0-12.2); MONOCYTES # (AUTO) 0.9 10^3/uL (0.0-1.0); MONOCYTES % (AUTO) 16 % (0-12); NEUTROPHILS # (AUTO) 2.9 10^3/uL (1.8-7.8); NEUTROPHILS % (AUTO) 53 % (42-75); PLATELET COUNT 306 10^3/uL (130-400); WHITE BLOOD COUNT 5.6 10^3/uL (4.3-11.0)
[2020-05-09 09:43] LABS: BUN/CREATININE RATIO 15; CALCIUM 9.5 MG/DL (8.5-10.1); CARBON DIOXIDE 23 MMOL/L (21-32); CHLORIDE 104 MMOL/L (98-107); CREATININE SERUM 0.93 MG/DL (0.60-1.30); GFR ESTIMATED > 60; GLUCOSE 87 MG/DL (70-105); MAGNESIUM 2.2 MG/DL (1.6-2.4); POTASSIUM 4.5 MMOL/L (3.6-5.0); SODIUM 138 MMOL/L (135-145)
[2020-05-16 13:01] LABS: BASOPHILS # (AUTO) 0.1 10^3/uL (0.0-0.1); BASOPHILS % (AUTO) 1 % (0-10); EOSINOPHILS # (AUTO) 0.2 10^3/uL (0.0-0.3); EOSINOPHILS % (AUTO) 4 % (0-10); HEMATOCRIT 38 % (40-54); HEMOGLOBIN 12.8 g/dL (13.3-17.7); LYMPHOCYTES # (AUTO) 1.3 10^3/uL (1.0-4.0); LYMPHOCYTES % (AUTO) 25 % (12-44); MEAN CORPUSCULAR HEMOGLOBIN 30 pg (25-34); MEAN CORPUSCULAR HGB CONC 34 g/dL (32-36); MEAN CORPUSCULAR VOLUME 88 fL (80-99); MEAN PLATELET VOLUME 9.8 fL (9.0-12.2); MONOCYTES # (AUTO) 0.4 10^3/uL (0.0-1.0); MONOCYTES % (AUTO) 8 % (0-12); NEUTROPHILS # (AUTO) 3.3 10^3/uL (1.8-7.8); NEUTROPHILS % (AUTO) 62 % (42-75); PLATELET COUNT 272 10^3/uL (130-400); WHITE BLOOD COUNT 5.3 10^3/uL (4.3-11.0)
[2020-05-16 13:20] LABS: BUN/CREATININE RATIO 11; CALCIUM 9.1 MG/DL (8.5-10.1); CARBON DIOXIDE 21 MMOL/L (21-32); CHLORIDE 106 MMOL/L (98-107); CREATININE SERUM 1.02 MG/DL (0.60-1.30); GFR ESTIMATED > 60; GLUCOSE 113 MG/DL (70-105); MAGNESIUM 2.2 MG/DL (1.6-2.4); SODIUM 139 MMOL/L (135-145)
== END 2020-05-15 | disposition home or self-care (01) ==
LOC: ONC 09:14
PROVIDERS: ATTEND Internal Medicine Hematology & Oncology
DX: C18.9 Malignant neoplasm of colon, unspecified (principal); E78.00 Pure hypercholesterolemia, unspecified; I10 Essential (primary) hypertension
CPT/HCPCS: 36591; 80048; 80053; 82378; 83735; 85025; 96367; 96375; 96413; 99213

== ENCOUNTER 2020-05-22 08:47 | Outpatient (RCR) | payer BC ==
[2020-05-16 13:01] LABS: BASOPHILS # (AUTO) 0.1 10^3/uL (0.0-0.1); BASOPHILS % (AUTO) 1 % (0-10); EOSINOPHILS # (AUTO) 0.2 10^3/uL (0.0-0.3); EOSINOPHILS % (AUTO) 4 % (0-10); HEMATOCRIT 38 % (40-54); HEMOGLOBIN 12.8 g/dL (13.3-17.7); LYMPHOCYTES # (AUTO) 1.3 10^3/uL (1.0-4.0); LYMPHOCYTES % (AUTO) 25 % (12-44); MEAN CORPUSCULAR HEMOGLOBIN 30 pg (25-34); MEAN CORPUSCULAR HGB CONC 34 g/dL (32-36); MEAN CORPUSCULAR VOLUME 88 fL (80-99); MEAN PLATELET VOLUME 9.8 fL (9.0-12.2); MONOCYTES # (AUTO) 0.4 10^3/uL (0.0-1.0); MONOCYTES % (AUTO) 8 % (0-12); NEUTROPHILS # (AUTO) 3.3 10^3/uL (1.8-7.8); NEUTROPHILS % (AUTO) 62 % (42-75); PLATELET COUNT 272 10^3/uL (130-400); WHITE BLOOD COUNT 5.3 10^3/uL (4.3-11.0)
[2020-05-16 13:20] LABS: BUN/CREATININE RATIO 11; CALCIUM 9.1 MG/DL (8.5-10.1); CARBON DIOXIDE 21 MMOL/L (21-32); CHLORIDE 106 MMOL/L (98-107); CREATININE SERUM 1.02 MG/DL (0.60-1.30); GFR ESTIMATED > 60; GLUCOSE 113 MG/DL (70-105); MAGNESIUM 2.2 MG/DL (1.6-2.4); SODIUM 139 MMOL/L (135-145)
[~2020-05-22 08:47] MED LIST changes: -D5W 500 ML IV (CANCER CTR) 500 ML IV SCH; -FOSAPREPITANT (CANCER CENTER) 150 MG in NS (IVPB) CANCER CENTER ONLY 150 ML IV SCH; -OXALIPLATIN 180 MG in D5W 250 ML IVPB (CANCER CTR) 250 ML IV SCH
[2020-05-22 09:07] LABS: BASOPHILS % (AUTO) 1 % (0-10); EOSINOPHILS % (AUTO) 1 % (0-10); HEMATOCRIT 38 % (40-54); HEMOGLOBIN 12.6 g/dL (13.3-17.7); LYMPHOCYTES # (AUTO) 0.9 10^3/uL (1.0-4.0); LYMPHOCYTES % (AUTO) 26 % (12-44); MEAN CORPUSCULAR HEMOGLOBIN 30 pg (25-34); MEAN CORPUSCULAR HGB CONC 34 g/dL (32-36); MEAN CORPUSCULAR VOLUME 89 fL (80-99); MEAN PLATELET VOLUME 9.9 fL (9.0-12.2); MONOCYTES # (AUTO) 0.4 10^3/uL (0.0-1.0); MONOCYTES % (AUTO) 12 % (0-12); NEUTROPHILS % (AUTO) 58 % (42-75); PLATELET COUNT 281 10^3/uL (130-400); WHITE BLOOD COUNT 3.5 10^3/uL (4.3-11.0)
[2020-05-22 09:39] LABS: ALANINE AMINOTRANSFERASE 74 U/L (0-55); ALBUMIN 4.2 GM/DL (3.2-4.5); ALKALINE PHOSPHATASE 83 U/L (40-136); BILIRUBIN,TOTAL 0.6 MG/DL (0.1-1.0); BUN/CREATININE RATIO 13; CALCIUM 9.3 MG/DL (8.5-10.1); CARBON DIOXIDE 20 MMOL/L (21-32); CHLORIDE 106 MMOL/L (98-107); CREATININE SERUM 1.01 MG/DL (0.60-1.30); GFR ESTIMATED > 60; GLUCOSE 99 MG/DL (70-105); MAGNESIUM 1.9 MG/DL (1.6-2.4); POTASSIUM 4.6 MMOL/L (3.6-5.0); SODIUM 140 MMOL/L (135-145); TOTAL PROTEIN 7.2 GM/DL (6.4-8.2)
== END 2020-08-14 | disposition home or self-care (01) ==
LOC: ONC 08:47
PROVIDERS: ATTEND Internal Medicine Hematology & Oncology
DX: C18.7 Malignant neoplasm of sigmoid colon (principal); E78.00 Pure hypercholesterolemia, unspecified; I10 Essential (primary) hypertension; Z93.2 Ileostomy status
CPT/HCPCS: 80048; 80053; 82378; 83735; 85025; 99213

== ENCOUNTER → 2020-06-07 | Outpatient (CLI) | payer BC | LOC: LABNPT 05:29 | PROVIDERS: ATTEND Surgery | DX: Z01.812 Encounter for preprocedural laboratory examination (principal); Z20.828 Contact with and (suspected) exposure to other viral communicable diseases | CPT/HCPCS: 87635 ==

== ENCOUNTER 2020-08-20 09:48 | Outpatient (RCR) | payer BC ==
[2020-08-20 10:09] LABS: BASOPHILS # (AUTO) 0.1 10^3/uL (0.0-0.1); BASOPHILS % (AUTO) 1 % (0-10); EOSINOPHILS # (AUTO) 0.2 10^3/uL (0.0-0.3); EOSINOPHILS % (AUTO) 4 % (0-10); HEMATOCRIT 42 % (40-54); HEMOGLOBIN 13.8 g/dL (13.3-17.7); LYMPHOCYTES # (AUTO) 1.2 10^3/uL (1.0-4.0); LYMPHOCYTES % (AUTO) 29 % (12-44); MEAN CORPUSCULAR HEMOGLOBIN 28 pg (25-34); MEAN CORPUSCULAR HGB CONC 33 g/dL (32-36); MEAN CORPUSCULAR VOLUME 86 fL (80-99); MEAN PLATELET VOLUME 9.7 fL (9.0-12.2); MONOCYTES # (AUTO) 0.5 10^3/uL (0.0-1.0); MONOCYTES % (AUTO) 12 % (0-12); NEUTROPHILS # (AUTO) 2.3 10^3/uL (1.8-7.8); NEUTROPHILS % (AUTO) 54 % (42-75); PLATELET COUNT 304 10^3/uL (130-400); WHITE BLOOD COUNT 4.2 10^3/uL (4.3-11.0)
[2020-08-20 10:38] LABS: ALANINE AMINOTRANSFERASE 47 U/L (0-55); ALBUMIN 4.4 GM/DL (3.2-4.5); ALKALINE PHOSPHATASE 69 U/L (40-136); BILIRUBIN,TOTAL 0.7 MG/DL (0.1-1.0); BUN/CREATININE RATIO 17; CALCIUM 9.9 MG/DL (8.5-10.1); CARBON DIOXIDE 25 MMOL/L (21-32); CHLORIDE 104 MMOL/L (98-107); CREATININE SERUM 0.98 MG/DL (0.60-1.30); GFR ESTIMATED > 60; GLUCOSE 92 MG/DL (70-105); POTASSIUM 4.2 MMOL/L (3.6-5.0); SODIUM 140 MMOL/L (135-145); TOTAL PROTEIN 7.6 GM/DL (6.4-8.2)
== END 2020-11-18 | disposition home or self-care (01) ==
LOC: ONC 09:48
PROVIDERS: ATTEND Internal Medicine Hematology & Oncology
DX: C18.7 Malignant neoplasm of sigmoid colon (principal); E78.00 Pure hypercholesterolemia, unspecified; I10 Essential (primary) hypertension; Z93.2 Ileostomy status
CPT/HCPCS: 80053; 82378; 85025; G0463; 99213

== ENCOUNTER → 2020-09-20 | Outpatient (CLI) | payer BC | LOC: LABNPT 05:25 | PROVIDERS: ATTEND Surgery | DX: Z20.822 Contact with and (suspected) exposure to COVID-19 (principal) | CPT/HCPCS: 87635 ==

== ENCOUNTER → 2020-09-20 | Outpatient (CLI) | payer BC ==
[~2020-09-20] MED LIST changes: +CATHETER FLUSH 10 ML SYR IV PRN; +HOLD METFORMIN - RECEIVED CONTRAST 20 ML VIAL IV SCH; +IOHEXOL 350 MG/ML 100 ML (OMNIPAQUE 350) VIAL IV ONE; +NS 100 ML (IVPB) BAG IV ONE
--- NOTE | 2020-09-20 09:25 | Diagnostic Imaging Report ---
EXAMINATION: CT Chest, Abdomen and Pelvis with intravenous contrast. TECHNIQUE: Multiple contiguous axial images were obtained through the chest, abdomen and pelvis after the uneventful administration of intravenous contrast. All CT scans use one or more of the following dose optimizing techniques: automated exposure control, MA and/or KvP adjustment based on a patient size and exam type, or iterative reconstruction. HISTORY: Colon cancer COMPARISON: None available. FINDINGS: There is no edema or pneumonia. No pleural effusion. No pneumothorax. No suspicious nodules. There is no axillary or supraclavicular lymphadenopathy. There is no mediastinal lymphadenopathy. Heart size is normal. There are no coronary artery calcifications. No pericardial effusion. Aorta is normal in caliber. The liver is normal without focal lesion. There is no biliary ductal dilation. Gallbladder is normal. Pancreas is normal. Spleen is normal. Adrenal glands are normal. The kidneys are normal. There is no hydronephrosis. Urinary bladder is normal. There has been a rectal resection. Another suture line is seen more distally in the colon. No obstruction or inflammation. No free fluid or air. No abdominal or pelvic lymphadenopathy. Aorta is normal in caliber without aneurysm. There are no suspicious osseus lesions. IMPRESSION: 1. No metastatic disease seen in the chest, abdomen or pelvis. Dictated by: Dictated on workstation # [id number]
== END ==
LOC: RAD 08:45
PROVIDERS: ATTEND Internal Medicine
DX: C18.7 Malignant neoplasm of sigmoid colon (principal)
CPT/HCPCS: 71260; 74177

== ENCOUNTER → 2021-05-23 | Outpatient (CLI) | payer BC ==
[~2021-05-23] MED LIST changes: -ACYC400T PO; +ACYC400T21 PO
--- NOTE | 2021-05-23 16:00 | Diagnostic Imaging Report ---
INDICATION: Colon cancer followup. TECHNIQUE: Multiple contiguous axial images were obtained through the chest, abdomen, and pelvis after the administration of intravenous contrast. Auto Exposure Controls were utilized during the CT exam to meet ALARA standards for radiation dose reduction. Comparison made to 09/20/2020. CT chest findings: There are no enlarged mediastinal or hilar nodes. There are no enlarged axillary nodes or chest wall lesions. There is no pleural or pericardial fluid. Lung parenchymal windows show no pulmonary infiltrates or nodules. CT abdomen and pelvis findings: The liver and gallbladder appear normal. The spleen, adrenals, and pancreas appear normal. The kidneys bilaterally are unremarkable. There is no retroperitoneal mass or adenopathy. There are postoperative changes in the anterior abdominal wall. There is no sign of bowel obstruction or focal bowel wall thickening. There is a surgical anastomosis in the rectosigmoid junction. There is no pelvic mass. IMPRESSION: No evidence of metastatic disease in the chest, abdomen or pelvis. Stable appearance compared with 09/20/2020. Dictated by: Dictated on workstation # [id number]
== END ==
LOC: RAD 14:15
PROVIDERS: ATTEND Internal Medicine
DX: C18.7 Malignant neoplasm of sigmoid colon (principal)
CPT/HCPCS: 71260; 74177

== ENCOUNTER → 2021-08-21 | Outpatient (CLI) | payer BC ==
[~2021-08-21] MED LIST changes: -CATHETER FLUSH 10 ML SYR IV PRN; -HOLD METFORMIN - RECEIVED CONTRAST 20 ML VIAL IV SCH; -IOHEXOL 350 MG/ML 100 ML (OMNIPAQUE 350) VIAL IV ONE; -NS 100 ML (IVPB) BAG IV ONE
[2021-08-21 10:54] LABS: BASOPHILS # (AUTO) 0.1 10^3/uL (0.0-0.1); BASOPHILS % (AUTO) 1 % (0-10); EOSINOPHILS # (AUTO) 0.1 10^3/uL (0.0-0.3); EOSINOPHILS % (AUTO) 3 % (0-10); HEMATOCRIT 43 % (40-54); HEMOGLOBIN 14.2 g/dL (13.3-17.7); LYMPHOCYTES # (AUTO) 1.3 10^3/uL (1.0-4.0); LYMPHOCYTES % (AUTO) 33 % (12-44); MEAN CORPUSCULAR HEMOGLOBIN 29 pg (25-34); MEAN CORPUSCULAR HGB CONC 33 g/dL (32-36); MEAN CORPUSCULAR VOLUME 87 fL (80-99); MEAN PLATELET VOLUME 9.4 fL (9.0-12.2); MONOCYTES # (AUTO) 0.5 10^3/uL (0.0-1.0); MONOCYTES % (AUTO) 12 % (0-12); NEUTROPHILS # (AUTO) 2.1 10^3/uL (1.8-7.8); NEUTROPHILS % (AUTO) 51 % (42-75); PLATELET COUNT 280 10^3/uL (130-400)
[2021-08-21 11:21] LABS: ALBUMIN 4.4 GM/DL (3.2-4.5); BILIRUBIN,TOTAL 0.8 MG/DL (0.1-1.0); CALCIUM 9.7 MG/DL (8.5-10.1); CREATININE SERUM 0.98 MG/DL (0.60-1.30); POTASSIUM 4.3 MMOL/L (3.6-5.0); TOTAL PROTEIN 7.5 GM/DL (6.4-8.2)
== END ==
LOC: LAB 10:26
PROVIDERS: ATTEND Internal Medicine
DX: C18.7 Malignant neoplasm of sigmoid colon (principal)
CPT/HCPCS: 36415; 80053; 82378; 85025

== ENCOUNTER → 2021-08-22 | Outpatient (CLI) | payer BC ==
[~2021-08-22] MED LIST changes: +GADOTERATE 0.5 MMOL/ML (CLARISCAN) 20 ML VIAL IV ONE
--- NOTE | 2021-08-22 15:14 | Diagnostic Imaging Report ---
EXAMINATION: MR imaging brain with and without contrast. TECHNIQUE: Multiplanar, multisequence MR imaging of the brain was performed with and without contrast. Additional dedicated pituitary sequences are performed. HISTORY: Followup benign pituitary tumor. Diplopia. COMPARISON: 06/02/2019. FINDINGS: No acute ischemia, mass, or hemorrhage. Scattered chronic microvascular disease is seen in the periventricular and subcortical white matter. The ventricles, cortical sulci, and basilar cisterns are symmetric and unremarkable. The major intracranial flow voids are intact. The infundibulum is midline. There is stable soft tissue prominence along the right lateral aspect of the sella. No discrete mass is seen within the pituitary gland. No evidence of invasion into the cavernous sinuses. No mass effect is seen on the optic chiasm or optic nerves. The brainstem and posterior fossa are unremarkable. The paranasal sinuses and mastoid air cells demonstrate normal signal characteristics. The globes and orbits are symmetric and unremarkable. The scalp and calvarium have a normal appearance. IMPRESSION: 1. No acute ischemia, mass, or hemorrhage. 2. Stable appearance of the pituitary gland with stable asymmetric soft tissue prominence along the right lateral aspect of the sella. This may represent an infiltrative pituitary microadenoma. No evidence of invasion of the cavernous sinuses or mass effect on the optic chiasm or optic nerves. Dictated by: Dictated on workstation # [id number]
== END ==
LOC: RAD 14:00
PROVIDERS: ATTEND Family Medicine
DX: D35.2 Benign neoplasm of pituitary gland (principal)
CPT/HCPCS: 70553

== ENCOUNTER → 2021-11-07 | Outpatient (CLI) | payer BC ==
[~2021-11-07] MED LIST changes: +CATHETER FLUSH 10 ML SYR IV PRN; -GADOTERATE 0.5 MMOL/ML (CLARISCAN) 20 ML VIAL IV ONE; +HOLD METFORMIN - RECEIVED CONTRAST 20 ML VIAL IV SCH; +IOHEXOL 350 MG/ML 100 ML (OMNIPAQUE 350) VIAL IV ONE; +NS 100 ML (IVPB) BAG IV ONE
[2021-11-07 14:44] LABS: BASOPHILS % (AUTO) 0 % (0-10); EOSINOPHILS % (AUTO) 0 % (0-10); HEMATOCRIT 43 % (40-54); HEMOGLOBIN 14.5 g/dL (13.3-17.7); LYMPHOCYTES # (AUTO) 0.4 10^3/uL (1.0-4.0); LYMPHOCYTES % (AUTO) 5 % (12-44); MEAN CORPUSCULAR HEMOGLOBIN 28 pg (25-34); MEAN CORPUSCULAR HGB CONC 34 g/dL (32-36); MEAN CORPUSCULAR VOLUME 85 fL (80-99); MEAN PLATELET VOLUME 9.6 fL (9.0-12.2); MONOCYTES # (AUTO) 0.1 10^3/uL (0.0-1.0); MONOCYTES % (AUTO) 1 % (0-12); NEUTROPHILS # (AUTO) 8.3 10^3/uL (1.8-7.8); NEUTROPHILS % (AUTO) 94 % (42-75); PLATELET COUNT 338 10^3/uL (130-400); WHITE BLOOD COUNT 8.9 10^3/uL (4.3-11.0)
[2021-11-07 14:57] LABS: ALBUMIN 4.6 GM/DL (3.2-4.5)
[2021-11-07 14:58] LABS: CHLORIDE 103 MMOL/L (98-107); POTASSIUM 4.3 MMOL/L (3.6-5.0); SODIUM 136 MMOL/L (135-145)
[2021-11-07 14:59] LABS: CALCIUM 9.9 MG/DL (8.5-10.1)
[2021-11-07 15:00] LABS: GLUCOSE 123 MG/DL (70-105); TOTAL PROTEIN 7.4 GM/DL (6.4-8.2)
[2021-11-07 15:01] LABS: CARBON DIOXIDE 21 MMOL/L (21-32)
[2021-11-07 15:03] LABS: ALKALINE PHOSPHATASE 58 U/L (40-136)
[2021-11-07 15:04] LABS: CREATININE SERUM 0.95 MG/DL (0.60-1.30); GFR ESTIMATED 91
[2021-11-07 15:05] LABS: BUN/CREATININE RATIO 17
[2021-11-07 15:07] LABS: ALANINE AMINOTRANSFERASE 34 U/L (0-55)
[2021-11-07 15:22] LABS: LYMPHOCYTES % (MANUAL) 5 %; MONOCYTES % (MANUAL) 3 %; NEUTROPHILS % (MANUAL) 92 %; RBC MORPH NORMAL
--- NOTE | 2021-11-07 15:41 | Diagnostic Imaging Report ---
EXAMINATION: CT chest, abdomen and pelvis with intravenous contrast. TECHNIQUE: Multiple contiguous axial images were obtained through the chest, abdomen and pelvis after the uneventful administration of intravenous contrast. All CT scans use one or more of the following dose optimizing techniques: automated exposure control, MA and/or KvP adjustment based on patient size and exam type or iterative reconstruction. HISTORY: CANCER OF SIGMOID COLON COMPARISON: 05/23/2021 FINDINGS: Thyroid: The visualized thyroid gland is normal. Mediastinum: Heart size is normal without significant pericardial effusion. The aorta is normal in caliber. No suspicious lymphadenopathy. Lungs and airways: The lungs are clear without consolidation, pleural effusion, or pneumothorax. No new suspicious pulmonary lesion. The airways are normal. Solid organs: The liver is normal without focal lesion. The gallbladder is normal. There is no biliary ductal dilation. Pancreas is normal. Spleen is normal. Adrenal glands are normal. The kidneys are normal without hydronephrosis. Bowel: The stomach and small bowel are normal without obstruction. Surgical changes of the colon. There is a moderate amount of stool seen throughout the colon. Peritoneum: There is no intraperitoneal free fluid or free air. No suspicious lymphadenopathy. Vasculature: Normal without aneurysm. Musculoskeletal: Degenerative changes of the spine without suspicious osseous lesion or compression fracture. Pelvis: The prostate gland is normal. The urinary bladder is normal. IMPRESSION: 1. Stable exam without new findings of metastatic disease within the chest, abdomen or pelvis. Dictated by: Dictated on workstation # [id number]
== END ==
LOC: RAD 15:15
PROVIDERS: ATTEND Internal Medicine
DX: C18.7 Malignant neoplasm of sigmoid colon (principal)
CPT/HCPCS: 36415; 71260; 74177; 80053; 82378; 85007; 85027

== ENCOUNTER 2022-08-01 19:32 | Emergency (ER) | payer BC ==
[~2022-08-01] VITALS: Ht 180.4 cm; Wt 100.5 kg
[~2022-08-01 19:32] MED LIST changes: -CATHETER FLUSH 10 ML SYR IV PRN; -HOLD METFORMIN - RECEIVED CONTRAST 20 ML VIAL IV SCH; -IOHEXOL 350 MG/ML 100 ML (OMNIPAQUE 350) VIAL IV ONE; -NS 100 ML (IVPB) BAG IV ONE
[2022-08-01] MEDS ORDERED: FAMOTIDINE 20MG/2ML IV (PEPCID) IVP ONE (19:45)
[2022-08-01] MEDS ORDERED: NS IV 1000 ML 1,000 ML IV SCH (19:45)
[2022-08-01] MEDS ORDERED: diphenhydrAMINE 50 MG/ML INJ (BENADRYL) IVP ONE (19:45)
[2022-08-01] MEDS ORDERED: methylPREDNISolone 125 MG (Solu-MEDROL) VIAL IVP ONE (19:45)
[2022-08-01] MEDS ORDERED: EPINEPHrine INJECTION 1 MG/ML AMP IM ONE (19:45)
--- NOTE | 2022-08-01 19:46 | ED General ---
General Stated Complaint: ALLERGIC REACTION Source of Information: Patient, Spouse History of Present Illness Date Seen by Provider: Aug 01, 2022 Time Seen by Provider: 19:32 Initial Comments PT ARRIVES VIA POV FROM HOME WITH , NEEDS WHEELCHAIR ON ARRIVAL PT WITH GENERALIZED HIVES, BEGAN JUST PRIOR TO ARRIVAL NO SWELLING ANYWHERE NO DIFFICULTY BREATHING OR WHEEZING NO DIFFICULTY SWALLOWING C/O DIZZINESS NO CHEST PAIN NO NAUSEA/VOMITING HAS HISTORY OF HIVES AND ANAPHYLAXIS MULTIPLE TIMES. 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 STATES HE HAS HAD TAMIFLU BEFORE AND NOT HAD PROBLEMS PCP: DR. LEYVA Allergies and Home Medications Allergies Coded Allergies: iodine (Verified Allergy, Severe, HIVES, 12/17/16) Shellfish (Verified Allergy, Mild, 05/30/19) Iodinated Contrast Media (Verified Allergy, Unknown, 02/21/20) Patient Home Medication List Home Medication List Reviewed: Yes Aspirin (Aspir 81) 81 Mg Tablet., 81 MG PO DAILY, (Reported) Entered as Reported by: LISA AMADOR on 05/30/19 1230 Cetirizine HCl (Zyrtec) 10 Mg Tablet, 10 MG PO DAILY, (Reported) Entered as Reported by: LISA AMADOR on 05/30/19 1230 Famotidine (Pepcid) 20 Mg Tablet, 20 MG PO DAILY, (Reported) Entered as Reported by: LISA AMADOR on 05/30/19 1230 Hydrocodone/Acetaminophen (Hydrocodone-Acetamin 5-325 mg) 1 Each Tablet, 1-2 EACH PO Q4H PRN for PAIN-BREAKTHROUGH Prescribed by: JESSICA LOUIS on 02/22/20 0817 Multivitamin (Multivitamins) 1 Each Capsule, 1 EACH PO DAILY, (Reported) Entered as Reported by: LISA AMADOR on 05/30/19 1230 Olmesartan Medoxomil (Olmesartan Medoxomil) 40 Mg Tablet, 40 MG PO DAILY, (Reported) Entered as Reported by: LISA AMADOR on 05/30/19 1231 Prednisone (Prednisone) 20 Mg Tab, 40 MG PO DAILY Prescribed by: KENDY MARKHAM on 08/01/227 Review of Systems Review of Systems Constitutional: see HPI, dizziness, malaise, weakness EENTM: nose congestion; No throat swelling Respiratory: cough; No short of breath, No wheezing Cardiovascular: see HPI; No chest pain Gastrointestinal: see HPI, loss of appetite Genitourinary: no symptoms reported Musculoskeletal: see HPI (BODY ACHES) Skin: see HPI, pruritus, rash Psychiatric/Neurological: No Symptoms Reported Hematologic/Lymphatic: No Symptoms Reported Immunological/Allergic: no symptoms reported Past [id number]-Rshcrb Hx Patient Social History Tobacco Use?: No Use of E-Cig and/or Vaping dev: No Substance use?: No Alcohol Use?: No Seasonal Allergies Seasonal Allergies: Yes Past Medical History Surgeries: Yes (LASIK SURGERY, DETATCHED BICEP, KNEE SCOPE, COLON RESECTION ILEOSTOMY) Abdominal, Bowel Surgery, Eye Surgery, Orthopedic Respiratory: No Currently Using CPAP: No Currently Using BIPAP: No Cardiac: Yes High Cholesterol, Hypertension Neurological: No Reproductive Disorders: No Sexually Transmitted Disease: No HIV/AIDS: No Genitourinary: No Gastrointestinal: Yes (RECTAL CA, ILEOSTOMY) Musculoskeletal: Yes (ORTHOPEDIC SURGERIES) Endocrine: No HEENT: No Loss of Vision: Denies Hearing Impairment: Denies Cancer: Yes Rectal Did You Recieve Any Treatments: Yes What Type of Treatment Did You: Surgical Intervention Psychosocial: No Integumentary: No Blood Disorders: No Adverse Reaction/Blood Tranf: No (N/A) Family Medical History MULTILPLE EPISODES OF HIVES AND ANAPHYLAXIS Physical Exam Vital Signs Vital Signs - First Documented 08/01/22 19:33 Temp 35.4 Pulse 63 Resp 26 B/P (MAP) 71/39 (50) Pulse Ox 91 O2 Delivery Nasal Cannula O2 Flow Rate 4.00 Capillary Refill : Height, Weight, BMI Height: '" Weight: lbs. oz. kg; 30.91 BMI Method:Stated General Appearance: WD/WN, Other (LETHARGIC. ) HEENT: PERRL/EOMI, Pharynx Normal, Moist Mucous Membranes, Other (NO SWELLING TO LIPS, TONGUE OR ORAL CAVITY) Neck: Normal Inspection Respiratory: Normal Breath Sounds, No Accessory Muscle Use, No Respiratory Distress Cardiovascular: Regular Rate, Rhythm, No Murmur Gastrointestinal: Soft Extremity: Normal Capillary Refill, No Pedal Edema Neurologic/Psychiatric: Alert, Oriented x3, No Motor/Sensory Deficits, vocational services specialist II- XII Norm as Tested Skin: Warm/Dry, Rash (DIFFUSE HIVES/REDNESS TO ENTIRE BODY. ) Progress/Results/Core Measures Suspected Sepsis SIRS Temperature: Pulse: Respiratory Rate: Blood Pressure / Mean: Results/Orders My Orders Orders - KENDY MARKHAM DO Epinephrine 1 Mg Injection (Adrenalin I (08/01/22 19:45) Ed Iv/Invasive Line Start (08/01/22 19:34) O2 (08/01/22 19:34) Monitor-Rhythm Ecg Trace Only (08/01/22 19:34) Ed Iv/Invasive Line Start (08/01/22 19:34) Ns Iv 1000 Ml (Sodium Chloride 0.9%) (08/01/22 19:45) Diphenhydramine Injection (Benadryl Inje (08/01/22 19:45) Famotidine Injection (Pepcid Injection) (08/01/22 19:45) Methylprednisolone Sod Succ (Solu-Medrol (08/01/22 19:45) Prednisone Tablet (Deltasone Tablet) (08/01/22 20:45) Medications Given in ED Vital Signs/I&O 08/01/22 08/01/22 08/01/22 08/01/22 19:33 19:33 19:35 19:37 Temp 35.4 Pulse 63 60 Resp 26 B/P (MAP) 71/39 (50) 71/39 Pulse Ox 91 O2 Delivery Nasal Cannula Room Air Nasal Cannula O2 Flow Rate 4.00 4.00 4.00 08/01/22 21:19 Temp 36.0 Pulse 69 Resp 17 B/P (MAP) 120/70 Pulse Ox 96 O2 Delivery Room Air Capillary Refill : Progress Note : Progress Note PT WAS PLACED ON MONITOR AND O2 AT 4L/NC GIVEN: -EPINEPHRINE IM -SOLU-MEDROL -PEPCID -BENADRYL -IV FLUIDS SYMPTOMS RESOLVED BP UP AND O2 SATS UP. PT FEELS COMFORTABLE GOING HOME Departure Impression Primary Impression: Acute urticaria Additional Impressions: Influenza-like symptoms Exposure to influenza Disposition: HOME, SELF-CARE Condition: Improved Departure-Patient Inst. Decision time for Depature: 20:43 Referrals: OLIVERIO LEYVA DO (PCP/Family) Primary Care Physician Patient Instructions: Hives (DC), Allergic Reaction ED Add. Discharge Instructions: HOME, REST STOP TAMIFLU LOTS OF CLEAR LIQUIDS BENADRYL 50 MG EVERY 4 HOURS NEEDED FOR RASH AND ITCHING PEPCID 40 MG TWICE A DAY NEEDED FOR RASH AND ITCHING TAKE PREDNISONE 40 MG TONIGHT IF SYMPTOMS RETURN USE YOUR HOME EPIPEN IF SYMPTOMS RETURN RETURN TO ER IF SYMPTOMS RETURN Scripts Prednisone (Prednisone) 20 Mg Tab 40 MG PO DAILY, #6 TAB 0 Refills Prov: KENDY MARKHAM DO 08/01/22 KENDY MARKHAM DO Aug 01, 2022 19:46
[2022-08-01] MEDS ORDERED: predniSONE 20 MG TAB PO ONE (20:45)
[2022-08-01] MEDS ORDERED: PRD20T PO (21:17)
[2022-08-01 21:19] VITALS: BP 120/70
== END 2022-08-01 21:19 | disposition home or self-care (01) ==
LOC: EDUNIT# 19:32 → ER 19:34
DX: L50.9 Urticaria, unspecified (principal); Z20.828 Contact with and (suspected) exposure to other viral communicable diseases
CPT/HCPCS: 93041

== ENCOUNTER → 2022-08-13 | Outpatient (CLI) | payer BC ==
[~2022-08-13] MED LIST changes: +PRD20T PO
[2022-08-13 11:24] LABS: BASOPHILS % (AUTO) 0 % (0-10); EOSINOPHILS # (AUTO) 0.1 10^3/uL (0.0-0.3); EOSINOPHILS % (AUTO) 2 % (0-10); HEMATOCRIT 44 % (40-54); LYMPHOCYTES # (AUTO) 1.6 10^3/uL (1.0-4.0); LYMPHOCYTES % (AUTO) 26 % (12-44); MEAN CORPUSCULAR HEMOGLOBIN 29 pg (25-34); MEAN CORPUSCULAR HGB CONC 34 g/dL (32-36); MEAN CORPUSCULAR VOLUME 84 fL (80-99); MEAN PLATELET VOLUME 9.3 fL (9.0-12.2); MONOCYTES # (AUTO) 0.4 10^3/uL (0.0-1.0); MONOCYTES % (AUTO) 7 % (0-12); NEUTROPHILS # (AUTO) 3.7 10^3/uL (1.8-7.8); NEUTROPHILS % (AUTO) 63 % (42-75); PLATELET COUNT 287 10^3/uL (130-400); WHITE BLOOD COUNT 5.9 10^3/uL (4.3-11.0)
[2022-08-13 12:04] LABS: ALBUMIN 4.4 GM/DL (3.2-4.5); BILIRUBIN,TOTAL 0.7 MG/DL (0.1-1.0); CALCIUM 9.4 MG/DL (8.5-10.1); CREATININE SERUM 0.95 MG/DL (0.60-1.30); POTASSIUM 3.8 MMOL/L (3.6-5.0); TOTAL PROTEIN 7.7 GM/DL (6.4-8.2)
== END ==
LOC: LAB 11:00
PROVIDERS: ATTEND Internal Medicine
DX: Z01.89 Encounter for other specified special examinations (principal)
CPT/HCPCS: 36415; 80053; 82378; 85025

== ENCOUNTER → 2022-10-30 | Outpatient (CLI) | payer BC ==
[~2022-10-30] MED LIST changes: +HOLD METFORMIN - RECEIVED CONTRAST 20 ML VIAL IV SCH; +IOHEXOL 350 MG/ML 100 ML (OMNIPAQUE 350) VIAL IV ONE; +NS 100 ML (IVPB) BAG IV ONE
[2022-10-30 07:48] LABS: BASOPHILS % (AUTO) 0 % (0-10); EOSINOPHILS % (AUTO) 0 % (0-10); HEMATOCRIT 45 % (40-54); HEMOGLOBIN 15.1 g/dL (13.3-17.7); LYMPHOCYTES # (AUTO) 0.6 10^3/uL (1.0-4.0); LYMPHOCYTES % (AUTO) 13 % (12-44); MEAN CORPUSCULAR HEMOGLOBIN 29 pg (25-34); MEAN CORPUSCULAR HGB CONC 34 g/dL (32-36); MEAN CORPUSCULAR VOLUME 86 fL (80-99); MEAN PLATELET VOLUME 9.9 fL (9.0-12.2); MONOCYTES # (AUTO) 0.1 10^3/uL (0.0-1.0); MONOCYTES % (AUTO) 2 % (0-12); NEUTROPHILS # (AUTO) 4.3 10^3/uL (1.8-7.8); NEUTROPHILS % (AUTO) 85 % (42-75); PLATELET COUNT 318 10^3/uL (130-400); WHITE BLOOD COUNT 5.1 10^3/uL (4.3-11.0)
[2022-10-30 08:07] LABS: ALANINE AMINOTRANSFERASE 37 U/L (0-55); ALBUMIN 4.6 GM/DL (3.2-4.5); ALKALINE PHOSPHATASE 61 U/L (40-136); BILIRUBIN,TOTAL 0.9 MG/DL (0.1-1.0); BUN/CREATININE RATIO 20; CARBON DIOXIDE 17 MMOL/L (21-32); CHLORIDE 107 MMOL/L (98-107); GFR ESTIMATED 85; GLUCOSE 126 MG/DL (70-105); POTASSIUM 4.2 MMOL/L (3.6-5.0); SODIUM 137 MMOL/L (135-145); TOTAL PROTEIN 7.9 GM/DL (6.4-8.2)
--- NOTE | 2022-10-30 09:35 | Diagnostic Imaging Report ---
PROCEDURE: CT chest, abdomen, and pelvis with contrast. TECHNIQUE: Multiple contiguous axial images were obtained through the chest, abdomen, and pelvis after the administration of intravenous contrast. Auto Exposure Controls were utilized during the CT exam to meet ALARA standards for radiation dose reduction. INDICATION: Colon carcinoma, status post partial colon resection, follow-up. CT CHEST: No axillary, hilar or mediastinal lymphadenopathy is detected. No pericardial or pleural fluid is identified. No pulmonary infiltrates, nodules or masses are detected. CT abdomen and pelvis: No focal liver mass is detected. The gallbladder is unremarkable. There is no biliary duct dilatation. Pancreas and spleen are unremarkable. No adrenal mass is detected. Kidneys are unremarkable. There is no hydronephrosis. Aorta is nonaneurysmal. No central retroperitoneal or mesenteric lymphadenopathy is detected. The bowel loops appear nonobstructed. There is moderate stool load throughout the colon. There are postoperative changes at the rectum sigmoid junction. Bladder is unremarkable. Prostate appears to be enlarged. There are bilateral fat-containing inguinal hernias. No pelvic lymphadenopathy is detected. There is no ascites. The bony structures are nonacute. IMPRESSION: 1. No evidence of thoracic, abdominal or pelvic lymphadenopathy or metastatic disease. 2. Moderate stool load, correlate for constipation. 3. Prostatomegaly. 4. Bilateral fat-containing inguinal hernias. Dictated by: Dictated on workstation # [id number]
== END ==
LOC: RAD 07:34
PROVIDERS: ATTEND Internal Medicine
DX: C18.9 Malignant neoplasm of colon, unspecified (principal); N40.0 Benign prostatic hyperplasia without lower urinary tract symptoms; K40.20 Bilateral inguinal hernia, without obstruction or gangrene, not specified as recurrent; Z91.041 Radiographic dye allergy status; Z90.49 Acquired absence of other specified parts of digestive tract
CPT/HCPCS: 36415; 71260; 74177; 80053; 82378; 85025

== ENCOUNTER → 2023-03-22 | Outpatient (CLI) | payer BC ==
[~2023-03-22] MED LIST changes: +GADOTERATE 0.5 MMOL/ML (CLARISCAN) 20 ML VIAL IV ONE; -HOLD METFORMIN - RECEIVED CONTRAST 20 ML VIAL IV SCH; -IOHEXOL 350 MG/ML 100 ML (OMNIPAQUE 350) VIAL IV ONE; -NS 100 ML (IVPB) BAG IV ONE
--- NOTE | 2023-03-22 14:47 | Diagnostic Imaging Report ---
TECHNIQUE: Multiplanar and multisequence MRI of the brain is performed with and without contrast. Additional dedicated sequences are performed of the pituitary. REASON FOR EXAM: Follow-up pituitary tumor. Dizziness. COMPARISON: 08/22/2021. FINDINGS: No acute ischemia, mass, or hemorrhage. No midline shift or mass effect. No abnormal intraparenchymal enhancement. Scattered chronic microvascular disease is seen in the periventricular and subcortical white matter. The ventricles, cortical sulci, and basilar cisterns are symmetric and unremarkable. The major intracranial flow voids are intact. Stable soft tissue prominence along the right aspect of the sella. The infundibulum is midline. No local mass effect or invasion. The cavernous sinuses are clear. The optic nerves and optic chiasm have a normal appearance without displacement. The paranasal sinuses and mastoid air cells are clear. The globes and orbits are unremarkable. The scalp and calvarium are intact. IMPRESSION: 1. Stable appearance of the pituitary with stable small amount of soft tissue fullness along the right aspect of the sella. No evidence of progression. No mass effect or local invasion. 2. No acute ischemia, mass, or hemorrhage. No abnormal parenchymal enhancement. 3. Stable scattered chronic microvascular disease. Dictated by: Dictated on workstation # [id number]
== END ==
LOC: RAD 12:29
PROVIDERS: ATTEND Family Medicine
DX: D49.7 Neoplasm of unspecified behavior of endocrine glands and other parts of nervous system (principal); I67.9 Cerebrovascular disease, unspecified; H81.4 Vertigo of central origin; H53.2 Diplopia
CPT/HCPCS: 70553